=== PATIENT | female | born 1990 | race Caucasian/White ===

== ENCOUNTER 2022-01-24 14:47 | Emergency (ER) | payer SELFPAY ==
[~2022-01-24] VITALS: Ht 165.1 cm; Wt 76.0 kg
[2022-01-24] MEDS ORDERED: ZONI100C45 MT ×2 (16:48→17:31)
[2022-01-24] MEDS ORDERED: LEVE1000 MT ×2 (16:50→17:31)
[2022-01-24 18:08] VITALS: BP 127/97
== END 2022-01-24 18:10 | disposition home or self-care (01) ==
LOC: ER 14:47
DX: Z76.0 Encounter for issue of repeat prescription (principal); R56.9 Unspecified convulsions; F32.9 Major depressive disorder, single episode, unspecified; F41.9 Anxiety disorder, unspecified; Z88.2 Allergy status to sulfonamides; Z88.8 Allergy status to other drugs, medicaments and biological substances
CPT/HCPCS: 99283

== ENCOUNTER 2022-02-16 18:56 | Emergency (ER) | payer SELFPAY ==
[~2022-02-16] VITALS: Ht 165.1 cm; Wt 76.0 kg
[~2022-02-16 18:56] MED LIST: LEVE1000 MT; ZONI100C45 MT
[2022-02-16 19:00] VITALS: BP 109/56
[2022-02-16] MEDS ORDERED: LEVE1000 MT (21:10)
[2022-02-16] MEDS ORDERED: ZONI100C45 MT (21:10)
[2022-02-16] MEDS ORDERED: ZONISAMIDE 100MG CAPSULE PO ONE (21:15)
== END 2022-02-16 21:30 | disposition home or self-care (01) ==
LOC: ER 19:02
DX: Z76.0 Encounter for issue of repeat prescription (principal); G40.909 Epilepsy, unspecified, not intractable, without status epilepticus; F32.A Depression, unspecified; F41.9 Anxiety disorder, unspecified; Z88.1 Allergy status to other antibiotic agents; Z88.2 Allergy status to sulfonamides
CPT/HCPCS: 99283

== ENCOUNTER → 2022-03-08 | Emergency (ER) | payer SELFPAY ==
[~2022-03-08] VITALS: Ht 162.6 cm; Wt 70.0 kg
[~2022-03-08] MED LIST changes: +NAPR-1176 MT; +NAPROXEN 250MG TABLET PO ONE
[2022-03-08 18:13] VITALS: BP 102/62
== END ==
LOC: ER 21:44
DX: M79.671 Pain in right foot (principal); M79.672 Pain in left foot; F41.9 Anxiety disorder, unspecified; F31.9 Bipolar disorder, unspecified; Z79.899 Other long term (current) drug therapy; Z76.0 Encounter for issue of repeat prescription
CPT/HCPCS: 81025; 99282

== ENCOUNTER 2022-03-27 01:09 | Emergency (ER) | payer SELFPAY ==
[~2022-03-27] VITALS: Ht 165.1 cm; Wt 79.0 kg
[~2022-03-27 01:09] MED LIST changes: -NAPROXEN 250MG TABLET PO ONE
[2022-03-27 01:36] VITALS: BP 121/64
[2022-03-27 04:23] LABS: CLARITY URINE CLOUDY (CLEAR); COLOR URINE YELLOW (YELLOW); KETONES URINE TRACE (NEGATIVE); LEUKOCYTE ESTERASE URINE 2+ (NEGATIVE); NITRITE URINE NEGATIVE (NEGATIVE); OCCULT BLOOD URINE 2+ (NEGATIVE); PH URINE 6.5 (4.5-8.0); PROTEIN URINE 1+ (NEGATIVE)
[2022-03-27] MEDS ORDERED: ZONI100C45 MT (05:22)
[2022-03-27] MEDS ORDERED: LEVE1000 MT (05:22)
[2022-03-27] MEDS ORDERED: CEPH500T MT (05:28)
[2022-03-27] MEDS ORDERED: FLUC200T51 MT (05:29)
== END 2022-03-27 06:01 | disposition home or self-care (01) ==
LOC: ER 01:09
DX: N39.0 Urinary tract infection, site not specified (principal); N76.0 Acute vaginitis; R56.9 Unspecified convulsions; F32.9 Major depressive disorder, single episode, unspecified; F41.9 Anxiety disorder, unspecified; Z76.0 Encounter for issue of repeat prescription; Z88.2 Allergy status to sulfonamides; Z88.8 Allergy status to other drugs, medicaments and biological substances
CPT/HCPCS: 81003; 99283